=== PATIENT | female | born 1995 | race Hispanic/Latino ===

== ENCOUNTER 2019-10-08 13:29 | Emergency (ER) | payer OTHER, MEDICAID, SELFPAY ==
[2019-10-08 13:40] VITALS: BP 128/71; PULSE 92; RESP 18; TEMP 36.7; O2SAT 99; BMI 22.6
--- NOTE | 2019-10-08 13:47 | PC.NURSE ---
shocking sensation right side of face, sometimes with neck pain, denies fever,chills, injuries. denies facial numbness, neuro fast exam negative. escorted by spouse.
[2019-10-08] MEDS: KETOROLAC 60 MG/2 ML VIAL 30 MG IM (14:20)
[2019-10-08] MEDS: ACETAMINOPHEN 325 MG TABLET 975 MG PO (14:20)
--- NOTE | 2019-10-08 14:20 | ED.HA ---
HPI - Headache <JANIE Dhillon - Last Filed: 10/08/19 20:27> General Chief Complaint: Headache Stated Complaint: neck pain, pain on right side of head Time Seen by Provider: 10/08/19 13:31 Mode of arrival: Ambulatory Limitations: no limitations History of Present Illness HPI Narrative: 24-year-old female with a history of migraines, presents emergency department complaining of intermittent sharp stabbing pain at the base of her skull. She states the pain lasts a few seconds and occurs 2-3 times throughout the last day. This morning she woke up and noticed a dull aching in her occipital region that is a constant 3/10. She has not taken any Tylenol or ibuprofen for it at this time. She reports the pain does not radiate at any point. It is not made worse with neck rotation, flexion, or extension. She denies any injuries to her neck or head. Patient denies any vision changes, sensation changes, limb weakness, facial droop, nausea, vomiting, diarrhea, chest pain, fevers, eye pain, dizziness, or other concerns. She states she has an infant at home but is not currently breast-feeding. Related Data Home Medications Medication Instructions Recorded Confirmed [IMPLANT FOR BC] #0 04/22/17 sertraline mg 10/08/19 Allergies Allergy/AdvReac Type Severity Reaction Status Date / Time acetaminophen [From Fioricet] Allergy Verified 10/08/19 13:43 butalbital [From Fioricet] Allergy Verified 10/08/19 13:43 caffeine [From Fioricet] Allergy Verified 10/08/19 13:43 Review of Systems <JANIE Dhillon - Last Filed: 10/08/19 20:27> Review of Systems Narrative: REVIEW OF SYSTEMS: GENERAL: Denies fever or chills. HENT: Reports headache, see HPI. EYES: No loss of vision, double vision, eye pain, or irritation. CARDIOVASCULAR: No chest pain or syncope. RESPIRATORY: No shortness of breath or cough. GASTROINTESTINAL: No nausea, vomiting, diarrhea, or constipation. GENITOURINARY: No flank pain or dysuria. MUSCULOSKELETAL: No pain, weakness, or deformities. INTEGUMENTARY: No rash, lesions, or pruritus. NEURO: No numbness, tingling, memory loss, or confusion. PSYCH: No behavior or mood changes. Patient History <JANIE Dhillon - Last Filed: 10/08/19 20:27> Medical History (Updated 10/08/19 @ 20:11 by JANIE Dhillon) No significant medical problems (Acute) Social History Smoking Status: Never smoker Substance Use Type: does not use Exam <JANIE Dhillon - Last Filed: 10/08/19 20:27> Initial Vital Signs Initial Vital Signs: Vital Signs Temperature 98.0 F 10/08/19 13:40 Pulse Rate 92 H 10/08/19 13:40 Respiratory Rate 18 10/08/19 13:40 Blood Pressure 128/71 10/08/19 13:40 Pulse Oximetry 99 10/08/19 13:40 PHYSICAL EXAMINATION: GENERAL: Well groomed, alert, and cooperative. Answers questions promptly and appropriately. Vital signs noted. HENT: Normocephalic, atraumatic. Ear canals patent. Oral mucosa is pink and moist. Oropharynx without erythema. NECK: Full range of motion, no spinal tenderness. Slight tenderness to palpation of the base of occipital region. EYES: PERRLA, EOMIs, conjunctiva pink, sclera white, no periorbital swelling. CHEST: Normal to inspection and without deformities. CARDIOVASCULAR: S1 and S2 sounds normal. Regular rate and rhythm, no murmurs, clicks, or bruits. No pedal edema. RESPIRATORY: Normal respiratory rate, trachea midline, airway patent. No stridor, nasal flaring or accessory muscle use. Lungs are clear in all [place] without wheeze, rhonchi, or crackles. GASTROINTESTINAL: Bowel sounds normoactive. Abdomen is soft and non-tender. No organomegaly. MUSCULOSKELETAL: Normal gait and coordination. Equal tone and mass bilaterally. EXTREMITIES: CMS intact. Moves all extremities. SKIN: Warm, dry, soft, appropriate color for ethnicity. No lesions, rashes, or wounds. NEURO: Alert and Oriented X 3. Good coordination. CN II-XIII intact. No ataxia, or sensory deficits, or cognitive issues. PSYCH: Appropriate affect and mood. <Laura Guido DO - Last Filed: 10/10/19 07:22> Initial Vital Signs Initial Vital Signs: Vital Signs Temperature 98.0 F 10/08/19 13:40 Pulse Rate 92 H 10/08/19 13:40 Respiratory Rate 18 10/08/19 13:40 Blood Pressure 128/71 10/08/19 13:40 Pulse Oximetry 99 10/08/19 13:40 Course <JANIE Dhillon - Last Filed: 10/08/19 20:27> Course Course Narrative: Patient was given Toradol and Tylenol in the emergency department, she reported improved pain. Orders Ordered: Discontinued Medications Acetaminophen (Tylenol) 975 mg PO NOW ONE Stop: 10/08/19 14:16 Last Admin: 10/08/19 14:20 Dose: 975 mg Documented by: BECKYSENErick Ketorolac Tromethamine (Toradol) 30 mg IM NOW ONE Stop: 10/08/19 14:14 Last Admin: 10/08/19 14:20 Dose: 30 mg Documented by: KHUSHI Vital Signs Vital signs: Vital Signs - 8 hr 10/08/19 13:40 10/08/19 14:37 10/08/19 14:45 Temperature 98.0 F Pulse Rate 92 H 84 70 Respiratory Rate 18 14 18 Blood Pressure 128/71 111/73 Blood Pressure [Left Arm] 103/48 L Pulse Oximetry 99 99 96 <Laura Guido DO - Last Filed: 10/10/19 07:22> Orders Ordered: Discontinued Medications Acetaminophen (Tylenol) 975 mg PO NOW ONE Stop: 10/08/19 14:16 Last Admin: 10/08/19 14:20 Dose: 975 mg Documented by: MEISENErick Ketorolac Tromethamine (Toradol) 30 mg IM NOW ONE Stop: 10/08/19 14:14 Last Admin: 10/08/19 14:20 Dose: 30 mg Documented by: BECKYSENErick Vital Signs Vital signs: Vital Signs - 8 hr 10/08/19 13:40 10/08/19 14:37 10/08/19 14:45 Temperature 98.0 F Pulse Rate 92 H 84 70 Respiratory Rate 18 14 18 Blood Pressure 128/71 111/73 Blood Pressure [Left Arm] 103/48 L Pulse Oximetry 99 99 96 MDM - Headache <JANIE Dhillon - Last Filed: 10/08/19 20:27> Medical Records Attestation: I reviewed the patient's medical records. Lab Data Attestation: I reviewed the patient's lab results. MDM Narrative Medical decision making narrative: This is a 24-year-old female with a history of migraines presenting to the emergency department for sharp stabbing intermittent headaches over the past day. Her neuro exam is intact without abnormalities. Differential includes sharp stabbing headache, tension headache, or muscle strain due to description of pain and decreased symptoms after ibuprofen and Tylenol. Less likely cranial hemorrhage due to resolution of symptoms and and normal neurological exam. Less likely meningitis due to lack of other symptoms such as neck pain or fever or chills. Patient was encouraged to follow up with her primary care provider for further management of headache and or referral to neurologist if symptoms continue. Return precautions given for new or worsening symptoms. Discharge Plan Departure Patient Disposition: Home Clinical Impression: Pain head Qualifiers: Headache type: unspecified Headache chronicity pattern: acute headache Intractability: not intractable Qualified Code(s): R51 - Headache Discharge Date/Time: 10/08/19 14:45 Instructions: DI for Headache Activity Restrictions/Additional Instructions: Thank you for entrusting me with your care today. As discussed, your neuro examination was negative for any concerning findings. This possible you may have type of headache called primary sharp stabbing headaches. Please continue to monitor symptoms, you may take ibuprofen and Tylenol for pain. Follow up with your primary care provider in the next 2 weeks for re-evaluation and further testing if indicated. Return emergency department for double vision, vision loss, uncontrollable vomiting, high fevers, facial droop, limb weakness, or other new or concerning symptoms. Prescriptions: No Action [IMPLANT FOR BC] Qty: 0 RF: 0 sertraline 50 mg tablet RF: 0
[2019-10-08 14:37] VITALS: BP 103/48; PULSE 84; RESP 14; O2SAT 99
[2019-10-08 14:45] VITALS: BP 111/73; PULSE 70; RESP 18; O2SAT 96
== END 2019-10-08 14:45 | disposition home or self-care (01) ==
PROVIDERS: Emergency Provider Nurse Practitioner
DX: R51 Headache (principal)
CPT/HCPCS: 96372; 99283; J1885